=== PATIENT | female | born 1975 | race Caucasian/White ===

== ENCOUNTER 2017-07-03 20:50 | Emergency (ER) | payer OTHER ==
[2017-07-03 20:57] VITALS: BP 127/68
[2017-07-03] MEDS ORDERED: Acetaminophen TAB* 325 MG PO ONE (21:10)
[2017-07-03] MEDS ORDERED: Azithromycin TAB* 250 MG PO ONE (21:10)
--- NOTE | 2017-07-03 21:17 | UC ---
Ear Complaint HPI - HPI Summary HPI Summary: 42 year old female with recent URI symptoms that started one week ago. Reports cough, congestion and rhionorrhea. Symptoms resolved but yesterday and today developed severe ear pain. Took OTC pain med with no relief. No fever or chills. No ear discharge. - History of Current Complaint Chief Complaint: UCEar Stated Complaint: EAR PAIN Time Seen by Provider: 07/03/17 21:01 Hx Obtained From: Patient Hx Last Menstrual Period: 06/29/17 ?: No Onset/Duration: Sudden Onset, Gradual Onset Severity Initially: Mild Alleviating Factors: OTC Meds Associated Signs/Symptoms: Positive: URI Symptoms - Allergies/Home Medications Allergies/Adverse Reactions: Allergies Allergy/AdvReac Type Severity Reaction Status Date / Time Amoxicillin Allergy unknown rxn Verified 07/03/17 20:57 Home Medications: Home Medications Acetaminophen TAB* [Tylenol TAB*] 325 mg PO ONCE PRN 07/03/17 [History Confirmed 07/03/17] PMH/Surg Hx/FS Hx/Imm Hx Previously Healthy: Yes - Surgical History Surgical History: Yes Surgery Procedure, Year, and Place: x2 - Social History Alcohol Use: Rare Substance Use Type: None Smoking Status (MU): Never Smoked Tobacco - Immunization History Most Recent Influenza Vaccination: season Most Recent Tetanus Shot: unknown Review of Systems Constitutional: Negative Skin: Negative Eyes: Negative ENT: Negative, Ear Ache, Nasal Discharge Respiratory: Negative Cardiovascular: Negative Gastrointestinal: Negative Genitourinary: Negative Motor: Negative Neurovascular: Negative Musculoskeletal: Negative Neurological: Negative Psychological: Negative All Other Systems Reviewed And Are Negative: Yes Physical Exam Triage Information Reviewed: Yes Appearance: Well-Appearing, No Pain Distress Vital Signs: Initial Vital Signs Temp 37.3 C 07/03/17 20:54 Pulse 72 07/03/17 20:54 Resp 16 07/03/17 20:54 BP 127/68 07/03/17 20:54 Pulse Ox 100 07/03/17 20:54 Eye Exam: Normal Eyes: Positive: Conjunctiva Clear ENT: Positive: Nasal congestion, TM red, Other - External canal erythema, No debris in ear no tenderness with tragus manipulation Respiratory: Positive: Chest non-tender, Lungs clear, Normal breath sounds, No respiratory distress Cardiovascular: Positive: RRR, No Murmur Abdomen Description: Positive: Nontender, No Organomegaly Neurological: Positive: Alert Skin Exam: Normal Ear Complaint Course/Dx - Course Course Of Treatment: Otitis media - Differential Dx/Diagnosis Differential Diagnosis/HQI/PQRI: Otitis Media Provider Diagnoses: Otitis media Discharge - Discharge Plan Condition: Good Disposition: HOME Prescriptions: Azithromycin [Azithromycin 500 MG TAB] 500 mg PO DAILY #5 tab Patient Education Materials: Otitis Media (ED) Forms: *Work Release Referrals: Romy Miner NP [Primary Care Provider] - Additional Instructions: Take medications as prescribed. If your symptoms worsen, go to your nearest ED. Follow up with your primary care doctor.
== END 2017-07-03 21:30 | disposition home or self-care (01) ==
LOC: UCEAST 20:50
DX: H66.90 Otitis media, unspecified, unspecified ear (principal); R05 Cough; J34.89 Other specified disorders of nose and nasal sinuses; Z88.1 Allergy status to other antibiotic agents
CPT/HCPCS: 99212; A9270-GY; G0463